=== PATIENT | female | born 1995 | race Hispanic/Latino ===

== ENCOUNTER 2018-07-30 10:42 | Observation (INO) | payer MEDICAID ==
[~2018-07-30] VITALS: Ht 165.1 cm; Wt 64.0 kg
[2018-07-30] MEDS: LACTATED RINGERS 1000ML 1,000 ML IV SCH ×3 (11:25→13:10)
[2018-07-30 11:27] LABS: APPEARANCE,URINE CLEAR (CLEAR); BILIRUBIN,URINE Negative (NEGATIVE); COLOR,URINE Yellow (YELLOW); GLUCOSE, URINE (UA) Negative (NEGATIVE); KETONES,URINE Negative (NEGATIVE); LEUKOCYTE ESTERASE ,URINE Small (NEGATIVE); NITRATE,URINE Negative (NEGATIVE); OCCULT BLOOD,URINE Negative (NEGATIVE); PH,URINE 6.5 (5.0-8.0); PROTEIN,URINE Negative (NEGATIVE)
[2018-07-30 11:28] LABS: BACTERIA,URINE Few /HPF (None Seen); RBC,URINE 0-1 /HPF (0-1); SQUAMOUS EPITHELIAL CELL,UR Rare /HPF (0-2)
[2018-07-30] MEDS ORDERED: LACTATED RINGERS 1000ML IV SCH (12:00)
[2018-07-30] MEDS: TERBUTALINE SULFATE VIAL 1MG/ML SQ PRN ×2 (12:05→13:30)
== END 2018-07-30 15:40 | disposition home or self-care (01) ==
LOC: LDH 10:42
PROVIDERS: ADMIT Obstetrics & Gynecology; ATTEND Obstetrics & Gynecology
DX: O26.893 Other specified pregnancy related conditions, third trimester (principal); R10.9 Unspecified abdominal pain; M54.9 Dorsalgia, unspecified; Z3A.36 36 weeks gestation of pregnancy
CPT/HCPCS: 81001; 96372; G0378 ×5; J3105; J7120; 96360

== ENCOUNTER 2018-08-07 04:49 | Inpatient (IN) | payer MEDICAID | END 2018-08-08 13:15 | disposition home or self-care (01) | LOC: EDH 04:49 → LDH 04:50 → WSH 10:00 ==

== ENCOUNTER 2018-11-03 22:13 | Emergency (ER) | payer MEDICAID ==
[2018-11-03] MEDS ORDERED: AMMONIA 1 EA AMP IH ONE (22:29)
[2018-11-03] MEDS ORDERED: SODIUM CHLORIDE 0.9% 1000ML 2,000 ML IV ONE (22:43)
[2018-11-03] MEDS ORDERED: ONDANSETRON HCL 4 MG/2 ML VIAL ONE (22:45)
[2018-11-03] MEDS ORDERED: METOCLOPRAMIDE 10 MG/2 ML VIAL ONE (22:45)
[2018-11-03] MEDS ORDERED: FAMOTIDINE/PF 20 MG/2 ML VIAL IV ONE (22:45)
[2018-11-03 22:47] LABS: BASOPHILS % (AUTO) 0.2 % (0.0-5.0); EOSINOPHILS % (AUTO) 0.3 % (0.0-8.0); HEMATOCRIT 37.1 % (36-48); LYMPHOCYTES % (AUTO) 5.5 % (21.0-51.0); MEAN CORPUSCULAR HEMOGLOBIN 22.9 pg (27.0-33.0); MEAN CORPUSCULAR VOLUME 71.6 fL (79-99); MONOCYTES % (AUTO) 4.3 % (3.0-13.0); NEUTROPHILS % (AUTO) 89.7 % (40.0-77.0); PLATELET COUNT (AUTO) 235 K/uL (130-400); RED BLOOD CELL COUNT(AUTO) 5.18 MIL/uL (4.00-5.50); RED CELL DISTRIBUTION WIDTH 17.8 % (11.0-15.5); WHITE BLOOD COUNT (AUTO) 10.3 K/uL (4.8-10.8)
[2018-11-03 22:56] LABS: CREATININE 0.7 mg/dL (0.5-1.5); POTASSIUM 3.1 mmol/L (3.5-5.1)
[2018-11-03 22:59] LABS: INR 1.02 (0.85-1.15); PARTIAL THROMBOPLASTIN TIME 26.9 SEC (26.3-35.5); PROTHROMBIN TIME 10.7 SEC (9.6-11.6)
[2018-11-03 23:06] LABS: ALBUMIN 4.5 g/dL (3.5-5.0); BILIRUBIN,TOTAL 0.2 mg/dL (0.2-1.0); TOTAL PROTEIN, SERUM 8.7 g/dL (6.0-8.3)
[2018-11-03] MEDS ORDERED: DEXTROSE 5 % AND 0.9 % NACL 1,000 ML IV ONE (23:37)
[2018-11-04 00:57] LABS: APPEARANCE,URINE Clear (CLEAR); BILIRUBIN,URINE Negative (NEGATIVE); COLOR,URINE Yellow (YELLOW); GLUCOSE, URINE (UA) >=1000 mg/dL (NEGATIVE); KETONES,URINE 15 mg/dL (NEGATIVE); LEUKOCYTE ESTERASE ,URINE Negative (NEGATIVE); NITRATE,URINE Negative (NEGATIVE); OCCULT BLOOD,URINE Negative (NEGATIVE); PH,URINE 5.5 (5.0-8.0); PROTEIN,URINE Negative (NEGATIVE); UROBILINOGEN,URINE 0.2 mg/dL (0.2-1.0)
== END 2018-11-04 00:54 | disposition home or self-care (01) ==
LOC: EDH 22:13
DX: E86.9 Volume depletion, unspecified (principal); R11.10 Vomiting, unspecified; R55 Syncope and collapse; R19.7 Diarrhea, unspecified
CPT/HCPCS: 36415; 80053; 81003; 82550; 83605; 83690; 84702; 85025; 85610; 85730; 96361; 96374; 96375; 99284; J2405; J2765; J3490 ×2; J7030; J7042

== ENCOUNTER 2019-12-29 01:04 | Emergency (ER) | payer MEDICAID, OTHER ==
[2019-12-29 02:11] LABS: APPEARANCE,URINE Clear (CLEAR); BILIRUBIN,URINE Negative (NEGATIVE); COLOR,URINE Yellow (YELLOW); GLUCOSE, URINE (UA) Negative (NEGATIVE); KETONES,URINE 40 mg/dL (NEGATIVE); LEUKOCYTE ESTERASE ,URINE Negative (NEGATIVE); NITRATE,URINE Negative (NEGATIVE); OCCULT BLOOD,URINE Moderate (NEGATIVE); PROTEIN,URINE POS 1+ mg/dL (NEGATIVE)
[2019-12-29 02:23] LABS: BACTERIA,URINE Few /HPF (None Seen); MUCUS,URINE Moderate LPF (None Seen); SQUAMOUS EPITHELIAL CELL,UR Moderate /HPF (0-2)
[2019-12-29 02:24] LABS: HCG,QUAL RESULT NEGATIVE (NEGATIVE); SPERM,URINE Moderate /HPF (None Seen)
== END 2019-12-29 02:51 | disposition home or self-care (01) ==
LOC: EDH 01:04
DX: N76.0 Acute vaginitis (principal)
CPT/HCPCS: 81001; 81025; 87486; 87797

== ENCOUNTER 2022-01-15 08:24 | Emergency (ER) | payer BC ==
[~2022-01-15] VITALS: Ht 165.1 cm; Wt 54.4 kg
[2022-01-15 08:29] VITALS: BP 132/77
[2022-01-15] MEDS ORDERED: ACETAMINOPHEN 325 MG TAB PO ONE (08:30)
[2022-01-15] MEDS ORDERED: LACTATED RINGERS 1000ML 1,000 ML IV ONE (08:30)
[2022-01-15] MEDS ORDERED: ONDANSETRON 4MG INJ IVP STA (09:00)
[2022-01-15] MEDS ORDERED: PANTOPRAZOLE 40 MG/VIAL IVP STA (09:00)
[2022-01-15 09:11] LABS: BASOPHILS % (AUTO) 0.6 % (0.0-5.0); EOSINOPHILS % (AUTO) 1.3 % (0.0-8.0); HEMATOCRIT 40.6 % (36-48); LYMPHOCYTES % (AUTO) 19.5 % (21.0-51.0); MEAN CORPUSCULAR HEMOGLOBIN 29.6 pg (27.0-33.0); MEAN CORPUSCULAR HGB CONC 34.2 g/dL (32.0-36.0); MEAN CORPUSCULAR VOLUME 86.4 fL (79-99); NEUTROPHILS % (AUTO) 72.3 % (40.0-77.0); PLATELET COUNT (AUTO) 240 K/uL (130-400)
[2022-01-15 09:50] LABS: APPEARANCE,URINE CLEAR (CLEAR); BILIRUBIN,URINE NEGATIVE (NEGATIVE); COLOR,URINE LIGHT-YELLOW (YELLOW); GLUCOSE, URINE (UA) NEGATIVE (NEGATIVE); KETONES,URINE NEGATIVE (NEGATIVE); LEUKOCYTE ESTERASE ,URINE 250 Leu/uL (NEGATIVE); NITRATE,URINE NEGATIVE (NEGATIVE); OCCULT BLOOD,URINE SMALL (NEGATIVE); PROTEIN,URINE NEGATIVE (NEGATIVE); UROBILINOGEN,URINE 0.2 mg/dL (0.2-1.0)
[2022-01-15 09:57] LABS: CREATININE 0.7 mg/dL (0.5-1.5); POTASSIUM 3.8 mmol/L (3.5-5.1)
[2022-01-15 10:09] LABS: BACTERIA,URINE RARE /HPF (None Seen); MUCUS,URINE RARE LPF (None Seen); RBC,URINE 0-1 /HPF (0-1); SQUAMOUS EPITHELIAL CELL,UR FEW /HPF (0-2)
[2022-01-15 10:11] LABS: HCG,QUALITATIVE URINE NEGATIVE (NEGATIVE)
[2022-01-15 10:12] LABS: ALBUMIN 4.1 g/dL (3.5-5.0); TOTAL PROTEIN, SERUM 8.1 g/dL (6.0-8.3)
[2022-01-15] MEDS ORDERED: CEPH500B PO (10:24)
== END 2022-01-15 10:47 | disposition home or self-care (01) ==
LOC: EDH 08:24
DX: N39.0 Urinary tract infection, site not specified (principal)
CPT/HCPCS: 99284; 96374; 96361; 96375; 80053; 85025; 87088; 81001; 81025; 36415; J7120; J2405; C9113

== ENCOUNTER 2024-11-23 22:00 | Emergency (ER) | payer BC ==
[~2024-11-23] VITALS: Ht 165.1 cm; Wt 64.4 kg
[~2024-11-23 22:00] MED LIST: CEPH500B PO
[2024-11-23 22:45] LABS: IMMATURE GRANULOCYTE ABSOLUTE 0.02 K/uL (0-1); NUCLEATED RED BLOOD CELLS 0.0 % (0.0-0.19); PLATELET COUNT (AUTO) 265 K/uL (130-400); RED BLOOD CELL COUNT(AUTO) 4.50 MIL/uL (4.00-5.50); RED CELL DISTRIBUTION WIDTH 12.2 % (11.0-15.5); WHITE BLOOD COUNT (AUTO) 8.2 K/uL (4.8-10.8)
[2024-11-23 22:53] LABS: CREATININE 0.9 mg/dL (0.5-1.0); GLOMERULAR FILTR. RATE CALC 88.0 mL/min (>90); GLUCOSE,RANDOM 101.0 mg/dL (70-105); SODIUM SERUM 138.0 mmol/L (136-145); UREA NITROGEN, BLOOD 13.0 mg/dL (7-18)
[2024-11-23 23:15] VITALS: TEMP 98.1
[2024-11-23 23:20] LABS: APPEARANCE,URINE CLEAR (CLEAR); GLUCOSE, URINE (UA) NEGATIVE (NEGATIVE); LEUKOCYTE ESTERASE ,URINE 75 Leu/uL (NEGATIVE); NITRATE,URINE NEGATIVE (NEGATIVE); OCCULT BLOOD,URINE +- (TRACE) (NEGATIVE)
[2024-11-23 23:22] LABS: HCG,QUALITATIVE URINE NEGATIVE (NEGATIVE)
[2024-11-23 23:23] LABS: ADD UA MICROSCOPIC YES
[2024-11-23 23:28] LABS: SQUAMOUS EPITHELIAL CELL,UR MOD /HPF (0-2)
--- NOTE | 2024-11-24 00:33 | ERN ---
ED Note History of Present Illness Stated Complaint: C/O LOWER BACK PAIN Chief Complaint: Back Pain-No Injury Time Seen by MD: 22:03 Time Seen by Midlevel: 22:04 Dictation: 28-year-old female presents to the emergency department due to reported having low back pain that is primarily on the left. She states that the pain is reproducible with certain particular movements. Patient reports having some chills but no confirmed fever. She states that she was seen at a local emergency department where she was diagnosed with a UTI and was placed on Keflex. At this time, the she reports her level of discomfort as a 4/10. The pain is described as an achy type of sensation. Upon initial evaluation, the patient presents in no acute distress. 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 Home Meds Active Scripts Cephalexin Monohydrate (Keflex) 500 Mg Cap, 500 MG PO TID for 7 Days, #21 CAP Prov:JOHN SHULTZ MD 01/15/22 Past Medical History Past Medical History: No Pertinent History Surgical History: None PSYCH History: no pertinent psych hx Social History: Negative LMP: Nov 09, 2024 RN Note Reviewed/Agreed w/PFSH: Yes Review of System Dictation Constitutional: Chills Back: Bilateral low back pain Initial Vital Sign VS Vital Signs Date Time Temp Pulse Resp B/P (MAP) Pulse Ox O2 Delivery O2 Flow Rate FiO2 11/23/24 22:03 99.1 86 18 116/76 98 Room Air 11/23/24 23:15 0 21 Physical Exam Dictation General: awake, alert, NAD Head/Face: Normocephalic, atraumatic Eyes: PERRL, EOMI ENT: Oral mucosa moist Neck: Trachea midline, supple Cardiovascular: RRR, no edema Respiratory: Symmetrical, non-labored Abdomen: Soft, non-tender, non-distended, no guarding. Skin: Warm, dry, good turgor, no rash MS/Extremity: Pulses equal, no cyanosis, neurovascular intact, FROM Back: Bilateral paraspinal lumbar tenderness Neuro: COAx4, GCS 15, steady gait, Psych: Normal behavior, mood, and affect normal Results (Laboratory/Radiology) Laboratory/Radiology Laboratory Tests Test 11/23/24 22:39 11/23/24 23:03 White Blood Count 8.2 K/uL (4.8-10.8) Red Blood Count 4.50 MIL/uL (4.00-5.50) Hemoglobin 13.4 g/dL (12.0-16.0) Hematocrit 40.1 % (36-48) Mean Corpuscular Volume 89.1 fL (79-99) Mean Corpuscular Hemoglobin 29.8 pg (27.0-33.0) Mean Corpuscular Hemoglobin Concent 33.4 g/dL (32.0-36.0) Red Cell Distribution Width 12.2 % (11.0-15.5) Platelet Count 265 K/uL (130-400) Mean Platelet Volume 9.7 fL (7.5-10.5) Immature Granulocyte % (Auto) 0.2 % (0-1) Neutrophils (%) (Auto) 67.6 % (40.0-77.0) Lymphocytes (%) (Auto) 23.6 % (21.0-51.0) Monocytes (%) (Auto) 6.0 % (3.0-13.0) Eosinophils (%) (Auto) 1.6 % (0.0-8.0) Basophils (%) (Auto) 1.0 % (0.0-5.0) Neutrophils # (Auto) 5.6 K/uL (1.8-7.7) Lymphocytes # (Auto) 1.9 K/uL (1.0-4.8) Monocytes # (Auto) 0.5 K/uL (0.1-1.0) Eosinophils # (Auto) 0.13 K/uL (0.00-0.70) Basophils # (Auto) 0.08 K/uL (0.00-0.20) Absolute Immature Granulocyte (auto 0.02 K/uL (0-1) Nucleated Red Blood Cells 0.0 % (0.0-0.19) Sodium Level 138 mmol/L (136-145) Potassium Level 4.4 mmol/L (3.5-5.1) Chloride Level 102 mmol/L (101-111) Carbon Dioxide Level 32 mmol/L (21-32) Blood Urea Nitrogen 13 mg/dL (7-18) Creatinine 0.9 mg/dL (0.5-1.0) Glomerular Filtration Rate Calc 88 mL/min (>90) Random Glucose 101 mg/dL (70-105) Total Calcium 9.7 mg/dL (8.5-10.1) Urine Color LIGHT-YELLOW (YELLOW) Urine Appearance CLEAR (CLEAR) Urine pH 6.0 (5.0-8.0) Urine Specific [place] 1.015 (1.001-1.031) Urine Protein NEGATIVE mg/dL (NEGATIVE) Urine Glucose (UA) NEGATIVE mg/dL (NEGATIVE) Urine Ketones NEGATIVE mg/dL (NEGATIVE) Urine Occult Blood +- (TRACE) (NEGATIVE) H Urine Nitrate NEGATIVE (NEGATIVE) Urine Bilirubin NEGATIVE mg/dL (NEGATIVE) Urine Urobilinogen 0.2 mg/dL (0.2-1.0) Urine Leukocyte Esterase 75 Sonam/uL (NEGATIVE) H Urine RBC 6-10 /HPF (0-1) H Urine WBC 2-5 /HPF (0-1) H Urine Squamous Epithelial Cells MOD /HPF (0-2) Urine Bacteria None /HPF (None Seen) Urine HCG, Qualitative NEGATIVE (NEGATIVE) Labs Reviewed?: Yes Ultrasound Comment: Renal ultrasound with the presence of mild edematous presentation of the left. ED Course ED Course Orders Procedure Category Date Status Time Cbc With Differential LAB 11/23/24 Complete 22:31 Basic Metabolic Panel LAB 11/23/24 Complete 22: Urinalysis Profile LAB 11/23/24 Complete 22:31 ,Urine Test LAB 11/23/24 Complete 22:31 Culture Urine OMEGA 11/23/24 In Process 23:23 Us Retroperitoneal Ltd US 11/23/24 Taken 23:32 Ketorolac PHA 11/24/24 Complete Tromethamine 30mg/Ml 00:00 Current Medications Medications (Trade) Dose Ordered Sig/Tiffanie Route PRN Reason Start Time Stop Time Status Last Admin Dose Admin Ketorolac Tromethamine (toRADol) 30 mg ONCE ONCE IVP 11/24/24 00:00 11/24/24 00:01 DC 11/24/24 00:03 Vital Signs Date Time Temp Pulse Resp B/P (MAP) Pulse Ox O2 Delivery O2 Flow Rate FiO2 11/23/24 23:15 98.1 75 20 108/76 98 Room Air* 0 21 11/23/24 22:03 99.1 86 18 116/76 98 Room Air Medical Decision Making MDM MDM: Differential diagnosis: Acute low back pain, this bilateral flank pain, ureteral stone. Rationale: Tests considered and ordered secondary to shared decision making include: Previous outside records reviewed: Old ER visits. Risk of complication and/or morbidity or mortality of patient management: None Medications-Per medication reconciliation Need for hospitalization: Patient does not meet criteria for hospitalization. Need for emergency major/minor surgery: No There are no social concerns with this patient. Prescription drug management Prescriptions will include symptomatic care Patient's prior external medical records from other ER visits were reviewed by me as indicated. Prior testing and results from previous visits were reviewed. Prior tests were taken into account with medical decision making and resource utilization, independent historian/historians were used to obtain complete medical history. I independently interpreted the test that were performed, results were reviewed by me and considered findings on radiology if ordered. Medical management and examination interpretation discussions were had by me w ith other qualified healthcare professionals as indicated for the patient's care. DX & DISP Disposition: Discharge Departure Impression: Primary Impression: Acute low back pain Condition: Stable Referrals: SELF,REFERRAL (PCP) Time of Disposition: 00:32 KAHLIL JOHNSON Nov 24, 2024 00:33
[2024-11-24 00:36] VITALS: BP 112/73; PULSE 71; RESP 18; O2SAT 98
--- NOTE | 2024-11-24 01:13 | HMCIMG ---
EXAM: US Retroperitoneum, Renal. CLINICAL HISTORY: Pain. TECHNIQUE: Real-time ultrasound of the kidneys and urinary bladder with image documentation. COMPARISON: None provided. FINDINGS: RIGHT KIDNEY: Measures 10.0 ??? 4.2 ??? 4.3 cm. Normal size and contour. Areas of increased echogenicity noted. No renal mass, calculus, or hydronephrosis. LEFT KIDNEY: Measures 10.7 ??? 4.8 ??? 4.2 cm. Normal size and contour. Mild edematous appearance. No renal mass, calculus, or hydronephrosis. URINARY BLADDER: Wall thickness: 5 mm. Not fully distended at the time of the exam. No focal lesion identified. MISCELLANEOUS: No other abnormality was seen. IMPRESSION: Normal-sized kidneys without hydronephrosis. The right kidney shows areas of increased echogenicity. Mild edematous appearance of the left kidney. The urinary bladder is not fully distended, limiting evaluation. /Cathy
== END 2024-11-24 00:42 | disposition home or self-care (01) ==
LOC: EDH 22:00
DX: M54.50 Low back pain, unspecified (principal); Z79.899 Other long term (current) drug therapy
CPT/HCPCS: 99284; 80048; 85025; 87086; 81001; 81025; 36415; 76775; 96374; J1885